=== PATIENT | female | born 1945 | race Caucasian/White ===

== ENCOUNTER 2020-08-31 17:24 | Emergency (ER) | payer BC ==
--- NOTE | 2020-08-31 18:48 | EDM.PDOC ---
ED HPI GENERAL MEDICAL PROBLEM - General Chief Complaint: Respiratory Problem Stated Complaint: TRACH? T-TUBE CAME OUT Time Seen by Provider: 08/31/20 18:45 Source of Information: Reports: Patient, Family History Limitations: Reports: No Limitations - History of Present Illness INITIAL COMMENTS - FREE TEXT/NARRATIVE: 75-year-old female presents emergency department today with dislodgment of her tracheostomy tube, she does have an emergency tracheostomy tube that needs placement this is a 5 0 we do not have a 5 0 in the hospital, she is not having any difficulty breathing - Related Data Allergies Allergy/AdvReac Type Severity Reaction Status Date / Time atropine Allergy Hives Verified 08/31/20 18:00 Penicillins Allergy Hives Verified 08/31/20 18:00 Past Medical History HEENT History: Reports: Cataract, Impaired Vision, Macular Degeneration, Sinusitis Cardiovascular History: Reports: Afib, High Cholesterol, Prior Cardiac Arrest Respiratory History: Reports: Intubation, Previous, Pneumothorax [employer] REPRESENTATIVE History: Reports: Endometriosis, Musculoskeletal History: Reports: Arthritis, Fracture, Other (See Below) Other Musculoskeletal History: osteopenia. Endocrine/Metabolic History: Reports: Diabetes, Type II, Hypothyroidism - Past Surgical History HEENT Surgical History: Reports: Cataract Surgery, Other (See Below) Other HEENT Surgeries/Procedures: stoma for airway Respiratory Surgical History: Reports: Tracheostomy GI Surgical History: Reports: Appendectomy, Colonoscopy Female Surgical History: Reports: Tubal Ligation Endocrine Surgical History: Reports: Thyroidectomy, Other (See Below) Other Endocrine Surgeries/Procedures: parital thyroidectomy Neurological Surgical History: Reports: Laminectomy Musculoskeletal Surgical History: Reports: Hip Replacement, Knee Replacement, Shoulder Replacement Social & Family History - Tobacco Use Tobacco Use Status *Q: Never Tobacco User - Caffeine Use Caffeine Use: Reports: Soda - Recreational Drug Use Recreational Drug Use: No ED ROS GENERAL - Review of Systems Review Of Systems: See Below Constitutional: Reports: Other (Tracheotomy dislodgment) Respiratory: Reports: No Symptoms Cardiovascular: Reports: No Symptoms ED EXAM, GENERAL - Physical Exam Exam: See Below Free Text/Narrative:: She is not in any respiratory distress she needs her tracheotomy replaced unfortunately do not have a 500 therefore she does have one that was provided for her for emergency use. She is planning to meet with the ciaio lumite injector tomorrow for T-tube placement in the [facility]. The procedure was after cleansing her emergency tube with alcohol rinsing with saline then jelly was placed on the tube this was then passed to her open tracheotomy site without difficulty the obturator was removed this was an open lumen obturator. Tracheostomy site and tube were suctioned x3 she tolerated the procedure well O2 sats remained above 90% Course - Vital Signs Last Recorded V/S: Last Vital Signs Temp 97.1 F 08/31/20 17:58 Pulse 59 L 08/31/20 17:58 Resp 16 08/31/20 17:58 BP 119/66 08/31/20 17:58 Pulse Ox 100 08/31/20 17:58 Departure - Departure Time of Disposition: 18:48 Disposition: Home, Self-Care 01 Condition: Fair Clinical Impression: Tracheostomy malfunction Tracheostomy complication Qualifiers: Tracheostomy complication: other Qualified Code(s): J95.09 - Other tracheostomy complication - Discharge Information Instructions: Tracheostomy and Tracheostomy Tube Safety and Care, Adult Referrals: PCP,None [Primary Care Provider] - Additional Instructions: Please follow-up with your ciaio lumite injector tomorrow for more permanent tracheostomy tube, call or return to the emergency department worsening of symptoms Sepsis Event Note (ED) - Evaluation Sepsis Screening Result: No Definite Risk - Focused Exam Vital Signs: Vital Signs Temp Pulse Resp BP Pulse Ox 08/31/20 17:58 97.1 F 59 L 16 119/66 100 - Assessment/Plan Plan: Assessment Acuity = acute Site and laterality = tracheostomy tube dysfunction Etiology = tube dislodgment Manifestations = none Location of injury = Home Lab values = none Plan She will follow-up with her ciaio lumite injector tomorrow for more permanent placement of a tube This note was dictated using [employer] voice recognition software please call with any questions on syntax or grammar.
== END 2020-08-31 19:07 | disposition home or self-care (01) ==
LOC: JP.ED 17:24
DX: J95.09 Other tracheostomy complication (principal); J95.03 Malfunction of tracheostomy stoma; I48.91 Unspecified atrial fibrillation; E11.9 Type 2 diabetes mellitus without complications; Z88.0 Allergy status to penicillin
CPT/HCPCS: 99283